=== PATIENT | female | born 1930 | race Caucasian/White ===

== ENCOUNTER 2017-01-17 18:01 | Emergency (ER) | payer OTHER ==
[~2017-01-17] VITALS: Ht 160 cm; Wt 58.1 kg
[~2017-01-17 18:01] MED LIST: DILT240C88 PO; PANT40VI PO; TEMA15CA5 PO
--- NOTE | 2017-01-17 18:55 | NUR ---
Dr Scott at the bedside for eval and exam.
[2017-01-17] MEDS ORDERED: LET TOPICAL SOLUTION 8 ML UDC TP ONE (19:00)
[2017-01-17] MEDS ORDERED: LET TOPICAL SOLUTION 8 ML UDC ONE (19:11)
[2017-01-17] MEDS ORDERED: NEOMY/BACITRA/POLYMYXIN B OINT UD PACKET TP ONE ×2 (19:15→19:47)
--- NOTE | 2017-01-17 19:18 | NUR ---
Received report from MANUELA Villanueva. Assumed care of pt at this time. Xrays obtained. Pt resting in postion of comfort for self.
[2017-01-17 20:05] VITALS: BP 154/60
== END 2017-01-17 20:05 | disposition home or self-care (01) ==
LOC: ER 18:07
DX: S61.402A Unspecified open wound of left hand, initial encounter (principal); C18.9 Malignant neoplasm of colon, unspecified; W01.0XXA Fall on same level from slipping, tripping and stumbling without subsequent striking against object, initial encounter; Y93.89 Activity, other specified; Y99.8 Other external cause status; Y92.89 Other specified places as the place of occurrence of the external cause; I10 Essential (primary) hypertension; Z88.0 Allergy status to penicillin; Z88.6 Allergy status to analgesic agent
CPT/HCPCS: 73080; A4663

== ENCOUNTER 2017-01-19 14:41 | Emergency (ER) | payer OTHER ==
[~2017-01-19] VITALS: Ht 160 cm; Wt 58.0 kg
[2017-01-19] MEDS ORDERED: NEOMY/BACITRA/POLYMYXIN B OINT UD PACKET TP ONE (15:35)
--- NOTE | 2017-01-19 15:42 | NUR ---
Patient discharged to home in stable conditon with family. Written and verbal after care instructions given. Patient and family verbalizes understanding of instructions. Stressed follow up with pmd or return to ER for worsening s/s.
--- NOTE | 2017-01-19 15:42 | NUR ---
Sylvester mondragon in ED - 01/19/17 at 1542 by VITALIY Patient discharged to home in stable conditon. Written and verbal after care instructions given. Patient verbalizes understanding of instructions.
== END 2017-01-19 15:44 | disposition home or self-care (01) ==
LOC: ER 14:49
DX: L03.114 Cellulitis of left upper limb (principal); I10 Essential (primary) hypertension; D64.9 Anemia, unspecified; C18.9 Malignant neoplasm of colon, unspecified; Z88.0 Allergy status to penicillin; Z88.6 Allergy status to analgesic agent
CPT/HCPCS: A4663

== ENCOUNTER 2017-05-08 12:45 | Emergency (ER) | payer OTHER ==
[~2017-05-08] VITALS: Ht 157.5 cm; Wt 58.5 kg
--- NOTE | 2017-05-08 12:59 | NUR ---
PT CAN NOT PROVIDE NAMES OF HOME MEDICATION AT THIS TIME. HER FRIEND PROMISED TO BRING HOME MEDICATION LIST LATER.
[2017-05-08 13:31] LABS: BASOPHILS # (AUTO) 0.6 K/uL (0.0-8.0); BASOPHILS % (AUTO) 4.6 % (0.0-2.0); EOSINOPHILS % (AUTO) 0.2 % (0.0-7.0); HEMATOCRIT 43.5 % (37-47); HEMOGLOBIN 14.5 G/DL (12.0-16.0); LYMPHOCYTES # (AUTO) 1.7 K/UL (0.8-4.8); LYMPHOCYTES % (AUTO) 12.5 % (20.5-51.5); MEAN CORPUSCULAR HEMOGLOBIN 31.9 UUG (27.0-31.0); MEAN CORPUSCULAR HGB CONC 33 g/dL (32.0-37.0); MEAN CORPUSCULAR VOLUME 95.9 FL (81.0-99.0); MONOCYTES # (AUTO) 0.9 K/UL (0.1-1.30); MONOCYTES % (AUTO) 6.6 % (0.0-11.0); NEUTROPHILS # (AUTO) 10.5 K/UL (1.8-8.9); NEUTROPHILS % (AUTO) 76.1 % (38.5-71.5); PLATELET COUNT (AUTO) 283 K/UL (150-450); RED BLOOD CELL COUNT(AUTO) 4.53 MIL/UL (4.2-5.4); WHITE BLOOD COUNT (AUTO) 13.7 K/UL (4.0-11.2)
[2017-05-08 13:35] LABS: CARBON DIOXIDE 32 mmol/L (21-32); CHLORIDE 101 mmol/L (98-107); CREATININE 1.8 mg/dL (0.6-1.3); GLUCOSE 156 mg/dL (74-106); POTASSIUM 3.5 mmol/L (3.5-5.1); UREA NITROGEN, BLOOD 15 mg/dL (7-18)
[2017-05-08 13:40] LABS: ALANINE AMINOTRANSFERASE 18 U/L (14-59); ALKALINE PHOSPHATASE 87 U/L (50-136); ASPARTATE AMINOTRANSFERASE 23 U/L (15-37); BILIRUBIN,DIRECT 0.1 mg/dL (0.0-0.2); BILIRUBIN,TOTAL 0.5 mg/dL (0.2-1.0); LIPASE 184 U/L (73-393); TOTAL PROTEIN, SERUM 7.9 g/dL (6.4-8.2)
[2017-05-08 14:31] LABS: LYMPHOCYTES % (MANUAL) 14 % (20-40); MONOCYTES % (MANUAL) 9 % (2-10); NEUTROPHILS % (MANUAL) 77 % (42-75)
--- NOTE | 2017-05-08 15:52 | NUR ---
wheelchaired pt out to pt daughter car per request. pt and pt daughter wanted to go home. Addendum: 05/08/17 at 1558 by EMA Patient discharged to home in stable conditon. Written and verbal after care instructions given. Patient and daughter verbalize understanding of instructions.
[2017-05-08 15:59] VITALS: BP 149/89
== END 2017-05-08 16:00 | disposition home or self-care (01) ==
LOC: ER 12:48
DX: K59.00 Constipation, unspecified (principal); I10 Essential (primary) hypertension; Z88.0 Allergy status to penicillin; Z85.038 Personal history of other malignant neoplasm of large intestine; Z90.49 Acquired absence of other specified parts of digestive tract
CPT/HCPCS: 36415; 70030-TC; 83690; 85025; 93005; A4663; J1170; J2405; J7030